=== PATIENT | female | born 1965 | race Caucasian/White ===

== ENCOUNTER 2016-08-01 09:09 | Day surgery (SDC) | payer OTHER ==
[2016-08-01] MEDS ORDERED: LIDOCAINE 2% MDV (20MG/ML) 20ML VIAL IV ONE (14:00)
[2016-08-01] MEDS ORDERED: PROPOFOL 10 MG/ML VIAL IV ONE (14:00)
[2016-08-01] MEDS ORDERED: 0.9 % SODIUM CHLORIDE 10 ML VIAL IVP ONE (14:00)
--- NOTE | 2016-08-04 09:51 | Operative Note ---
DATE OF SURGERY: 08/01/2016 SURGEON: Ramana Lacy MD OPERATIONS: 1. ESOPHAGOGASTRODUODENOSCOPY. 2. COLONOSCOPY. INDICATIONS: This is a 51-year-old female with history of gastroesophageal reflux disease who has had intermittent nausea and vomiting and presented for esophagogastroduodenoscopy and screening colonoscopy. POSTOPERATIVE DIAGNOSES: 1. Normal esophagus. 2. Mild gastritis. 3. Normal duodenum. 4. Normal colon. ANESTHESIA: Sedation is per Anesthesia. Pulse oximetry was monitored throughout the procedure to maintain O2 saturation of 90% or greater. Supplemental oxygen was administered via nasal cannula. Cardiac and vital signs were monitored throughout the duration of the procedure, and they were stable. The standard procedures of esophagogastroduodenoscopy and colonoscopy and risks and benefits of the procedure, including the risk of bleeding and perforation, among others, were explained to the patient who voiced understanding and desired to have the procedures done. Physical examination was performed, and the patient was found stable for sedation. PROCEDURE: The patient was placed in the left lateral position. Anesthesia was initiated. A plastic bite block was inserted into the oral cavity. The Olympus [id number] gastroscope was then placed into the posterior oropharynx and under direct visualization was advanced to the proximal esophagus without difficulty. The esophageal mucosa was carefully examined upon introduction of the gastroscope. The proximal, mid, and distal esophageal mucosa appeared normal. The gastroscope was then advanced into the stomach, and surveillance of the stomach revealed diffuse erythema along the gastric body and antrum with submucosal nodule that was noted. There were no other lesions noted. The gastroscope was then advanced to the descending duodenum without difficulty. The duodenal bulb and descending duodenum appeared normal. The gastroscope was then withdrawn into the stomach and retroflexion was performed. The gastric cardia and the gastric fundus appeared normal. The gastroscope was then straightened and withdrawn while carefully examining the gastric and esophageal mucosa. No other lesions noted. Multiple duodenal and gastric biopsies were obtained. She remained with stable vital signs and was repositioned for colonoscopy. Digital rectal exam was performed and showed some mild external hemorrhoids with no palpable rectal masses. The Olympus PCF-180AL colonoscope was then inserted into the rectum under direct visualization and advanced to the cecum without difficulty. The ileocecal valve and appendiceal orifice were identified and photographed. The colonic mucosa was carefully examined upon introduction of the colonoscope. There were no lesions noted. The colonoscope was then withdrawn while carefully examining the colonic mucosal surfaces. No lesions were noted. In the rectum, retroflexion was performed and grade 1 internal hemorrhoids were noted. The colonoscope was then withdrawn, and the procedures were terminated. The patient tolerated the procedure well without any immediate complications. She remained with stable vital signs and was transferred to the recovery room. RECOMMENDATIONS: 1. The patient should be on a high-fiber diet. 2. She is to have a repeat colonoscopy for screening in about 10 years, and I will see her back in the office in about 6 weeks. Thank you for allowing me to participate in the care of your patient. Ramana Lacy MD CC: Dr. Bolivar BONILLA
== END 2016-08-01 11:10 | disposition home or self-care (01) ==
LOC: HOP 09:09
PROVIDERS: ATTEND Internal Medicine Gastroenterology
DX: Z12.11 Encounter for screening for malignant neoplasm of colon (principal); K29.50 Unspecified chronic gastritis without bleeding; R56.9 Unspecified convulsions; E78.00 Pure hypercholesterolemia, unspecified
CPT/HCPCS: 00810; 43239; 81025; G0121

== ENCOUNTER 2018-01-03 22:25 | Emergency (ER) | payer BC ==
[2018-01-03] MEDS ORDERED: ACETAMINOPHEN 325 MG TAB PO ONE (22:55)
[2018-01-03] MEDS ORDERED: ALPRAZOLAM 0.25 MG TABLET PO ONE (22:55)
--- NOTE | 2018-01-03 23:05 | Emergency Department Record ---
History of Present Illness - General Chief Complaint: Headache Migraine Stated Complaint: PAIN BEHIND LT EAR Time Seen by Provider: 01/03/18 22:42 Source: Patient Mode of Arrival: Ambulatory Limitations: No limitations - History of Present Illness Initial Comments: The patient is here due to a sharp stabbing pain over the L posterior skull area which started this AM. The pain has gradually worsened and now has become more severe. The patient does have a hx of a meningioma removed on the R side of the skull. She also has had mild twitching of her body that lasts a second at a time when she gets the head pain which also is new for her. 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 There has been no hx of cough, fever, chills, nausea, vomiting, visual changes or new neck pain. MD Complaint: Headache Onset/Timin -: Days(s) Onset Description: Gradual Location: Left Severity: Moderate Severity scale (1-10): 9 Quality: Pulsatile, Sharp Consistency: Constant, Intermittent Improves With: Nothing Worsens With: None Treatments Prior to Arrival: Acetaminophen - Symptoms of Stroke Baseline State: Baseline State - Related Data Previous Rx's Medication Instructions Recorded Ondansetron [Zofran Odt] 4 mg PO QID #10 tab.rapdis 06/10/14 Allergies Allergy/AdvReac Type Severity Reaction Status Date / Time Penicillins Allergy Severe RASH Verified 08/03/14 16:34 morphine AdvReac Severe MIGRAINES Verified 08/03/14 16:34 cephalexin monohydrate AdvReac Intermediate VOMITING Verified 08/03/14 16:34 [From Keflex] Travel Screening - Travel/Exposure Within Last 30 Days Have you traveled within the last 30 days?: No - Travel/Exposure Within Last Year Have you traveled outside the [place] in the last year?: No - Additonal Travel Details Have you been exposed to anyone with a communicable illness?: No - Travel Symptoms Symptom Screening: None Review of Systems Constitutional: Denies: Chills, Fever Eyes: Denies: Eye discharge ENT: Denies: Congestion, Other Respiratory: Denies: Cough, Dyspnea Past Medical History - SOCIAL HISTORY Smoking Status: Heavy tobacco smoker (>10/day) Alcohol Use: None Drug Use: None - RESPIRATORY Hx Respiratory Disorders: No - CARDIOVASCULAR Hx Cardio Disorders: No Comment:: n/a - NEURO Hx Neuro Disorders: Yes Hx Neuropathy: Yes (lack of feeling in fingers,bilat) Hx Seizures: Yes (petite mal 2014/ grand mal 1998) - GI Hx GI Disorders: Yes Hx Abdominal Pain: Yes Hx Nausea/Vomiting: Yes - Hx Genitourinary Disorders: Yes Hx Kidney Stones: Yes (lithotripsy x 2) - ENDOCRINE Hx Endocrine Disorders: Yes Hx Thyroid Disease: Yes (hypothyroid) - MUSCULOSKELETAL Hx Musculoskeletal Disorders: Yes Hx Arthritis: Yes (neck & hands) - PSYCH Hx Psych Problems: Yes Hx Anxiety: Yes Hx Depression: Yes - HEMATOLOGY/ONCOLOGY Hx Hematology/Oncology Disorders: No Comment:: mengioma- rt frontal lobe Family Medical History Any Significant Family History?: No Hx Cancer: Father, Mother *Cancer Comment: Lung with both Physical Exam - General General Appearance: Alert, Oriented x3, Cooperative, No acute distress - Head Head exam: Atraumatic, Normocephalic, Normal inspection Head exam detail: General tenderness (There is tenderness to palpation over the L parietal occipital area.) Image of Face/Head: 1 - Area of pain and reproducible tenderness. Neg for swelling, bruising, or erythema. - Eye Eye exam: Normal appearance, PERRL, EOMI. negative: Nystagmus - ENT ENT exam: Normal exam, Mucous membranes moist, Normal external ear exam, Normal orophraynx, TM's normal bilaterally Throat exam: Normal inspection. negative: Tonsillar erythema, Tonsillar exudate - Neck Neck exam: Normal inspection, Full ROM. negative: Tenderness - Respiratory Respiratory exam: Normal lung sounds bilaterally. negative: Respiratory distress - Cardiovascular Cardiovascular Exam: Regular rate, Normal rhythm, Normal heart sounds - GI/Abdominal GI/Abdominal exam: Soft, Normal bowel sounds. negative: Tenderness - Extremities Extremities exam: Normal inspection, Full ROM, Normal capillary refill. negative: Tenderness - Back Back exam: Reports: Normal inspection - Neurological Neurological exam: Alert, CN II-XII intact, Normal gait, Oriented X3, Other ( Neg Drift and Rhomberg exams.). negative: Abnormal gait, Altered, Motor sensory deficit - Psychiatric Psychiatric exam: negative: Anxious, Depressed - Skin Skin exam: negative: Rash Course Vital Signs 01/03/18 22:33 Temperature 97.3 F L Pulse Rate 65 Respiratory 20 Rate Blood Pressure 139/77 Pulse Ox 99 - Reevaluation(s) Reevaluation #1: The patient is doing better at this time. Her LOVE has mostly resolved and she is doing the twitching MUCH less and it basically has resolved. I did explain to her that I really cannot pinpoint the cause of her symptoms and for that reason do recommend hospital admission to a larger hospital for an MRI, EEG, and Neurology consult. The patient is refusing the plan and would just like to go home. Do to the fact the patient is much better and neurologically intact I do feel the patient is safe for home. She is to see her PCP tomorrow for recheck and to return to the ER for any worsening symptoms. 01/04/18 00:54 Medical Decision Making - Data Complexity MDM Data: Labs Ordered and/or Reviewed, X-Ray Ordered and/or Reviewed - Lab Data Result diagrams: 01/03/18 23:05 01/03/18 23:05 - Radiology Data Radiology results: Report reviewed (Head CT: Neg) Disposition Disposition: Discharge Clinical Impression: Headache Qualifiers: Headache type: unspecified Headache chronicity pattern: acute headache Intractability: not intractable Qualified Code(s): R51 - Headache Disposition: Home, Self-Care Condition: (2) Stable Instructions: Acute Headache (ED) Additional Instructions: Please continue your home pain medicines and see Dr. Sampson tomorrow for recheck. Please return to the ER for any worsening symptoms. Forms: Patient Portal Access Time of Disposition: 01:00 Quality - Quality Measures Quality Measures: N/A - Blood Pressure Screening View Details: Yes Does Patient Have Any of the Following: No Blood Pressure Classification: Pre-Hypertensive BP Reading Systolic Measurement: 139 Diastolic Measurement: 77 Screening for High Blood Pressure: < Pre-Hypertensive BP, F/U Documented > [ G8950] Pre-Hypertensive Follow-up Interventions: Referral to alternative/primary care provider.
[2018-01-03 23:11] LABS: BASO % 0.1 % (0-6); EOS % 1.2 % (0-6); HEMATOCRIT 41.2 % (35.0-47.0); HEMOGLOBIN 13.7 gm/dl (11.6-16.0); LYMPH % 32.1 % (16-45); MEAN CELL VOLUME 93.6 fl (81-97); MEAN CORPUSCULAR HEMOGLOBIN 31.1 pg (27-33); MEAN CORPUSCULAR HGB CONC 33.3 g/dl (32-36); MEAN PLATELET VOLUME 9.6 fl (7.4-10.4); MONO % 9.6 % (0-9); PLATELET COUNT 258 K/uL (130-400); RED CELL DISTRIBUTION WIDTH 13.2 % (11.5-14.5); WHITE BLOOD COUNT W/O DIFF 6.7 K/uL (4.2-12.2)
[2018-01-03 23:21] LABS: BLOOD UREA NITROGEN 13 mg/dL (6-20); CREATININE 0.8 mg/dL (0.5-0.9); EST GLOMERULAR FILTRATION RATE > 60 mL/min
[2018-01-03 23:22] LABS: TOTAL PROTEIN 7.3 g/dL (6.6-8.7)
[2018-01-03 23:24] LABS: GLUCOSE,RANDOM 108 mg/dL (74-109)
[2018-01-03 23:27] LABS: ALB/GLOB RATIO 1.8 (1.1-1.8); ALBUMIN 4.7 g/dL (4.0-5.0); ALKALINE PHOSPHATASE 82 U/L (35-104); ALT/SGPT 11 U/L (<33); AST/SGOT 21 U/L (10.0-35.0); C-REACTIVE PROTEIN 0.14 mg/dL (<0.5)
[2018-01-03] MEDS ORDERED: KETOROLAC 30 MG/ML VIAL IM ONE (23:52)
--- NOTE | 2018-01-04 05:37 | Emergency Department Record ---
History of Present Illness - General Chief Complaint: Headache Migraine Stated Complaint: PAIN BEHIND LT EAR Time Seen by Provider: 01/03/18 22:42 Mode of Arrival: Ambulatory Limitations: No limitations - History of Present Illness Onset/Timin -: Days(s) Onset Description: Gradual Location: Left Severity: Moderate Severity scale (1-10): 9 Quality: Pulsatile, Sharp Consistency: Constant, Intermittent Improves With: Nothing Worsens With: None Treatments Prior to Arrival: Acetaminophen - Symptoms of Stroke Baseline State: Baseline State - Related Data Previous Rx's Medication Instructions Recorded Ondansetron [Zofran Odt] 4 mg PO QID #10 tab.rapdis 06/10/14 Allergies Allergy/AdvReac Type Severity Reaction Status Date / Time Penicillins Allergy Severe RASH Verified 08/03/14 16:34 morphine AdvReac Severe MIGRAINES Verified 08/03/14 16:34 cephalexin monohydrate AdvReac Intermediate VOMITING Verified 08/03/14 16:34 [From SonoPlot] Travel Screening - Travel/Exposure Within Last 30 Days Have you traveled within the last 30 days?: No - Travel/Exposure Within Last Year Have you traveled outside the [place] in the last year?: No - Additonal Travel Details Have you been exposed to anyone with a communicable illness?: No - Travel Symptoms Symptom Screening: None Review of Systems Constitutional: Denies: Chills, Fever Eyes: Denies: Eye discharge ENT: Denies: Congestion, Other Respiratory: Denies: Cough, Dyspnea Past Medical History - SOCIAL HISTORY Smoking Status: Heavy tobacco smoker (>10/day) Alcohol Use: None Drug Use: None - RESPIRATORY Hx Respiratory Disorders: No - CARDIOVASCULAR Hx Cardio Disorders: No Comment:: n/a - NEURO Hx Neuro Disorders: Yes Hx Neuropathy: Yes (lack of feeling in fingers,bilat) Hx Seizures: Yes (petite mal 2014/ grand mal 1998) - GI Hx GI Disorders: Yes Hx Abdominal Pain: Yes Hx Nausea/Vomiting: Yes - Hx Genitourinary Disorders: Yes Hx Kidney Stones: Yes (lithotripsy x 2) - ENDOCRINE Hx Endocrine Disorders: Yes Hx Thyroid Disease: Yes (hypothyroid) - MUSCULOSKELETAL Hx Musculoskeletal Disorders: Yes Hx Arthritis: Yes (neck & hands) - PSYCH Hx Psych Problems: Yes Hx Anxiety: Yes Hx Depression: Yes - HEMATOLOGY/ONCOLOGY Hx Hematology/Oncology Disorders: No Comment:: mengioma- rt frontal lobe Family Medical History Any Significant Family History?: No Hx Cancer: Father, Mother *Cancer Comment: Lung with both Physical Exam - General Limitations: No limitations - Head Head exam: Normal inspection (Palpation of the L parietal occipital area exactly does reproduce the patient's LOVE. ) Course Vital Signs 01/03/18 01/04/18 01/04/18 22:33 00:37 01:09 Temperature 97.3 F L Pulse Rate 65 Pulse Rate [ 67 66 Pulse Ox Probe] Respiratory 20 16 20 Rate Blood Pressure 139/77 Blood Pressure 108/72 102/64 [Left Arm] Pulse Ox 99 97 98 Medical Decision Making - Lab Data Result diagrams: 01/03/18 23:05 01/03/18 23:05 Lab Results 01/03/18 01/03/18 01/04/18 Range/Units 23:05 23:05 00:00 WBC 6.7 (4.2-12.2) K/uL RBC 4.40 (3.80-5.40) M/uL Hgb 13.7 (11.6-16.0) gm/dl Hct 41.2 (35.0-47.0) % MCV 93.6 (81-97) fl MCH 31.1 (27-33) pg MCHC 33.3 (32-36) g/dl RDW 13.2 (11.5-14.5) % Plt Count 258 (130-400) K/uL MPV 9.6 (7.4-10.4) fl Gran % 57.0 (47-80) % Lymphocytes % 32.1 (16-45) % Monocytes % 9.6 H (0-9) % Eosinophils % 1.2 (0-6) % Basophils % 0.1 (0-6) % ESR 9 (0-30) mm/hr Sodium 140 (136-145) mmol/L Potassium 4.1 (3.4-4.5) mmol/L Chloride 97 L (98-107) mmol/L Carbon Dioxide 31.0 H (22-29) mmol/L Anion Gap 12.0 (7-16) BUN 13 (6-20) mg/dL Creatinine 0.8 (0.5-0.9) mg/dL Estimated GFR > 60 mL/min Random Glucose 108 (74-109) mg/dL Calcium 9.8 (8.6-10.0) mg/dL Total Bilirubin 0.20 (0.2-1.0) mg/dL AST 21 (10.0-35.0) U/L ALT 11 (<33) U/L Alkaline Phosphatase 82 (35-104) U/L C-Reactive Protein 0.14 (<0.5) mg/dL Total Protein 7.3 (6.6-8.7) g/dL Albumin 4.7 (4.0-5.0) g/dL Globulin 2.6 (1.4-4.8) gm/dL Albumin/Globulin Ratio 1.8 (1.1-1.8) Disposition Clinical Impression: Headache Qualifiers: Headache type: unspecified Headache chronicity pattern: acute headache Intractability: not intractable Qualified Code(s): R51 - Headache Disposition: Home, Self-Care Condition: (2) Stable Instructions: Acute Headache (ED) Additional Instructions: Please continue your home pain medicines and see Dr. Sampson tomorrow for recheck. Please return to the ER for any worsening symptoms. Forms: Patient Portal Access Quality - Quality Measures Quality Measures: N/A - Blood Pressure Screening View Details: Yes Does Patient Have Any of the Following: No Blood Pressure Classification: Pre-Hypertensive BP Reading Systolic Measurement: 139 Diastolic Measurement: 77 Screening for High Blood Pressure: < Pre-Hypertensive BP, F/U Documented > [ G8950] Pre-Hypertensive Follow-up Interventions: Referral to alternative/primary care provider.
--- NOTE | 2018-01-05 07:58 | CT SCAN REPORT ---
EXAM: EMERGENCY HEAD CT WITHOUT CONTRAST HISTORY: LEFT SIDED HEADACHE. HISTORY OF RIGHT SIDED CRANIOTOMY. TECHNIQUE: Axial CT scan of the head was performed without IV contrast. A preliminary report was provided by [facility]. Comparison: No prior head CT with which to compare. FINDINGS: No definite acute intracranial hemorrhage identified. No focal mass effect or midline shift evident. No definite acute infarct or intracranial mass lesion seen. Postop right frontal craniotomy. Opacification of some right mastoid air cells inferiorly which could be acute or chronic. No depressed calvarial fracture evident. IMPRESSION: 1. NO DEFINITE ACUTE INTRACRANIAL HEMORRHAGE OR FOCAL MASS EFFECT EVIDENT. 2. POSTOP RIGHT FRONTAL CRANIOTOMY. 3. MILD OPACIFICATION OF SOME RIGHT MASTOID AIR CELLS INFERIORLY. JOB NUMBER: [id number] MTDD
== END 2018-01-04 01:10 | disposition home or self-care (01) ==
LOC: ER 22:25
DX: R51 Headache (principal); R25.3 Fasciculation; G40.409 Other generalized epilepsy and epileptic syndromes, not intractable, without status epilepticus; F17.210 Nicotine dependence, cigarettes, uncomplicated
CPT/HCPCS: 99283; 96372; 99284; 85025; 85651; 86140; 80053; 70450; J1885